=== PATIENT | male | born 1965 | race Two or more races ===

== ENCOUNTER 2017-09-10 20:46 | Emergency (ER) | payer OTHER ==
[~2017-09-10] VITALS: Ht 170.2 cm; Wt 68.0 kg
--- NOTE | 2017-09-10 20:50 | NUR ---
AAOX3, BIB SELF TO ER C/O LEFT FOREARM PAIN AND SWELLING, HOT TO TOUCH X 3 DAYS, UNKNOWN ETIOLOGY. SKIN IS WARM AND DRY. AFEBRILE. RESP IS EVEN AND UNLABORED WITH NAD NOTED. AWAITING MD FOR EVAL.
[2017-09-10] MEDS ORDERED: CEPHALEXIN MONOHYDRATE 500 MG CAPSULE PO ONE ×2 (21:30→21:36)
[2017-09-10 21:59] VITALS: BP 121/78
== END 2017-09-10 21:59 | disposition home or self-care (01) ==
LOC: ER 20:48
DX: L03.114 Cellulitis of left upper limb (principal); F19.10 Other psychoactive substance abuse, uncomplicated
CPT/HCPCS: A4606; Z7610

== ENCOUNTER 2017-09-11 22:36 | Emergency (ER) | payer OTHER ==
[~2017-09-11] VITALS: Ht 170.2 cm; Wt 68.0 kg
--- NOTE | 2017-09-11 22:44 | NUR ---
CALLED BUT NOT IN THE TRIAGE ROOM
--- NOTE | 2017-09-12 00:20 | NUR ---
PT AMBULATED TO BED #11 WITH A STEADY GAIT AND HOLDING HIS RT WRIST.
--- NOTE | 2017-09-12 00:28 | NUR ---
DR. BEJARANO IS AT THE BEDSIDE.
[2017-09-12] MEDS ORDERED: HYDROCODONE/APAP 10/325MG 1 EA TABLET ONE (00:43)
[2017-09-12] MEDS ORDERED: LORAZEPAM 1 MG TABLET ONE (00:44)
[2017-09-12] MEDS ORDERED: ONDANSETRON 4 MG TAB.RAPDIS ONE (00:44)
[2017-09-12] MEDS ORDERED: HYDROCODONE/APAP 10/325MG 1 EA TABLET PO ONE (01:00)
[2017-09-12] MEDS ORDERED: oxyCODONE/APAP (5/325 MG) 1 UDTAB TABLET PO ONE (01:00)
[2017-09-12] MEDS ORDERED: LORAZEPAM 1 MG TABLET PO ONE (01:00)
[2017-09-12] MEDS ORDERED: ONDANSETRON 4 MG TAB.RAPDIS SL ONE (01:00)
--- NOTE | 2017-09-12 01:37 | NUR ---
CALLED DR. [facility] S[facility]COP[facility] ([facility]) [phone], DR. CHRISTIANO HAWKINS SPEAKING TO DR. BEJARANO REGARDING POC.
--- NOTE | 2017-09-12 01:50 | NUR ---
PT AMBULATED OUT WITH A STEADY GAIT. PT'S FRIEND IS DRIVING PT HOME. PT LEFT BEFORE REC'ING IMAGING DISK. Patient discharged to home in stable condition. Written and verbal after care instructions given. Patient verbalizes understanding of instruction.
[2017-09-12 02:11] VITALS: BP 172/85
== END 2017-09-12 01:50 | disposition home or self-care (01) ==
LOC: ER 22:36
DX: S62.101A Fracture of unspecified carpal bone, right wrist, initial encounter for closed fracture (principal); F44.89 Other dissociative and conversion disorders; F15.10 Other stimulant abuse, uncomplicated; W18.39XA Other fall on same level, initial encounter; Y93.89 Activity, other specified; Y92.89 Other specified places as the place of occurrence of the external cause; Y99.8 Other external cause status
CPT/HCPCS: 29125; 73110; 99284; A4606; Q0162; Z7610

== ENCOUNTER 2018-05-16 19:48 | Emergency (ER) | payer OTHER ==
[~2018-05-16] VITALS: Ht 170.2 cm; Wt 70.3 kg
--- NOTE | 2018-05-16 19:58 | NUR ---
PT BIBSELF C/C L RIB PAIN S/P STANDING ON A CHAIR AND FALLING ON ANOTHER CHAIR. PT DENIES HEAD TRAUMA. PT AOX4. PT ON MONITOR IN BED 9. WILL CONTINUE TO MONITOR.
[2018-05-16 20:08] VITALS: BP 134/88
--- NOTE | 2018-05-16 20:14 | NUR ---
RADIOLOGY AT BEDSIDE FOR XRAY
== END 2018-05-16 21:16 | disposition home or self-care (01) ==
LOC: ER 19:51
DX: S20.212A Contusion of left front wall of thorax, initial encounter (principal); W07.XXXA Fall from chair, initial encounter; Y93.89 Activity, other specified; Y92.89 Other specified places as the place of occurrence of the external cause; Y99.0 Civilian activity done for income or pay
CPT/HCPCS: 71100-TC

== ENCOUNTER 2019-10-09 00:04 | Emergency (ER) | payer OTHER ==
[~2019-10-09] VITALS: Ht 170.2 cm; Wt 70.3 kg
[2019-10-09 00:23] VITALS: BP 116/72
--- NOTE | 2019-10-09 00:24 | NUR ---
PT AAOX4. AMBULATORY WITH STEADY GAIT. BIBSELF C/O R CALF PAIN X1 DAY. PT STATED "THIS MIGHT BE A CLOT." PER ASSESSMENT R CALF REDNESS NOTED. PT IS HIV POSITIVE. NO ACUTE DISTRESS NOTED. AWAITING MD FOR EVAL AND ORDERS.
[2019-10-09] MEDS ORDERED: SULFAMETH/TRIMETH 800/160 MG 1 UDTAB TABLET ONE (00:44)
[2019-10-09] MEDS ORDERED: SULFAMETH/TRIMETH 800/160 MG 1 UDTAB TABLET PO ONE (01:00)
== END 2019-10-09 00:53 | disposition home or self-care (01) ==
LOC: ER 00:07
DX: L03.115 Cellulitis of right lower limb (principal)

== ENCOUNTER 2019-10-29 04:34 | Emergency (ER) | payer OTHER ==
[~2019-10-29] VITALS: Ht 170.2 cm; Wt 70.3 kg
[2019-10-29 04:45] VITALS: BP 124/68
--- NOTE | 2019-10-29 04:48 | NUR ---
PT CAME TO THE ED C/O RFA PAIN AND SWELLING. +REDNESS +WARM. PT ADMITS TO INJECTING METH AT THE SITE 5 DAYS AGO. PT AAOX4, VSS, RESPIRATIONS EVEN AND UNLABORED ON RA W/ NAD NOTED. PT CONNECTED TO THE MONITOR AND POX.
--- NOTE | 2019-10-29 04:48 | NUR ---
DR SHERIDAN AT BEDSIDE
--- NOTE | 2019-10-29 05:02 | NUR ---
XRAY AT BEDSIDE
--- NOTE | 2019-10-29 05:48 | NUR ---
Patient discharged to home in stable condition. Written and verbal after care instructions given. Patient verbalizes understanding of instruction.
== END 2019-10-29 05:48 | disposition home or self-care (01) ==
LOC: ER 04:34
DX: L03.113 Cellulitis of right upper limb (principal); Z60.2 Problems related to living alone
CPT/HCPCS: 73090-TC

== ENCOUNTER 2019-10-31 00:01 | Emergency (ER) | payer OTHER ==
[~2019-10-31] VITALS: Ht 170.2 cm; Wt 70.3 kg
[2019-10-31 00:02] VITALS: BP 148/51
== END 2019-10-31 00:36 | disposition home or self-care (01) ==
LOC: ER 00:02
DX: L03.113 Cellulitis of right upper limb (principal); Z90.79 Acquired absence of other genital organ(s); Z90.89 Acquired absence of other organs; Z98.890 Other specified postprocedural states; Z60.2 Problems related to living alone

== ENCOUNTER 2024-08-03 20:19 | Emergency (ER) | payer OTHER | END 2024-08-03 22:04 | disposition left against medical advice (07) | LOC: ER 20:49 | DX: K46.9 Unspecified abdominal hernia without obstruction or gangrene (principal); Z53.21 Procedure and treatment not carried out due to patient leaving prior to being seen by health care provider ==